=== PATIENT | male | born 2005 | race Caucasian/White ===

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

== ENCOUNTER 2023-04-22 16:09 | Emergency (ER) | payer MEDICAID, SELFPAY ==
[2023-04-22 16:15] VITALS: BP 122/66; PULSE 110; RESP 18; TEMP 37; O2SAT 100; BMI 19.9
--- NOTE | 2023-04-22 16:45 | W.ED.SKABFB ---
HPI - Skin/Abscess/Foreign Bdy General: Chief complaint: Skin/Abscess/Foreign Body Stated complaint: sore on right arm Time Seen by Provider: 04/22/23 16:34 Source: patient Mode of arrival: ambulatory Limitations: no limitations History of Present Illness: Patient is a 18-year-old male who presents to ED today with complaint of redness and swelling surrounding his right elbow. He states approximately 4 to 5 days ago he noticed a small pimple-like lesion near the elbow that he attempted to pop and drain. He states since then he has noticed worsening swelling and redness. Patient was seen at a walk-in clinic yesterday and placed on Bactrim. He has had a total of 2 doses of this medication. They also prescribed him topical mupirocin ointment. Patient states redness and swelling continues to spread and now has noticed a very small amount of purulent drainage. He maintains full painless range of motion of the elbow joint. He has no systemic symptoms such as fevers, body aches, vomiting. He does report a history of staph to a left finger over a decade ago. MD complaint: abscess/boil Onset (ago): day(s) Tetanus up to date: yes Location: RUE Severity: moderate Pain Consistency: constant Relieving factors: none Exacerbating factors: none Context: none Associated symptoms: Reports no associated symptoms; Deny chills or fever(s) Treatments prior to arrival: antibiotic Review of Systems Const: Denies: fever(s), chills, body aches, fatigue or malaise Card: Denies: chest pain Resp: Denies: dyspnea GI: Denies: abdominal pain Musc: Reports: extremity pain (R arm), extremity swelling (R arm), joint pain (R elbow) and joint swelling (R elbow); Denies: neck pain, back pain, joint redness or joint warmth Neuro: Denies: numbness in extremities, weakness in extremities, sensory changes or dizziness PFS ED PFSH: Social History Smoking and tobacco status: never smoked Second hand smoke exposure: No Substance/Drug Use: never Adopted: No Physical Exam Const: COMMON NORMALS: no acute distress, average body habitus, no limitations, healthy appearing, alert and well nourished Extremity: COMMON NORMALS: full ROM and capillary refill normal GENERAL: Yes normal exam except as noted RIGHT UPPER EXTREMITY: Yes elbow joint Right elbow: Yes ROM (full painless ROM of elbow joint) and Yes neurovascular exam (normal) OTHER: Patient has redness and swelling affecting the dorsal aspect of his right elbow. He has a scant amount of purulent central drainage. This was obtained and cultured. There is no underlying fluctuance to suggest abscess at this time. Surrounding induration and cellulitis noticed EXTREMITY IMAGE (BACK): 1. erythema/cellulitis; early abscess formation Neuro: COMMON NORMALS: moves all extremities, no focal motor deficits and no sensory deficits noted SENSORIUM/ORIENTATION: Yes alert Course Vital Signs: Vital signs: Vital Signs Temperature 98.6 F 04/22/23 16:15 Pulse Rate 110 H 04/22/23 16:15 Respiratory Rate 18 04/22/23 16:15 Blood Pressure 122/66 04/22/23 16:15 Pulse Oximetry 100 04/22/23 16:15 MDM - Skin/Abscess/Foreign Bdy Medicial Decision Making Patient here with redness and swelling along with early abscess formation overlying his right elbow. Patient has no extension into his bursa and I have no concern for septic bursitis. He has full painless range of motion of the joint therefore no clinical suspicion for septic arthritis. Abscess at this time is not amendable to I&D. I was able to express a small amount of purulent drainage for culture. Patient has had less than 24 hours of antibiotic therapy. I will increase his Bactrim to 2 tabs twice daily. He was given IM Rocephin here prior to discharge. Strict return ED precautions given. Discharge Plan Discharge Patient Disposition: Home Clinical Impression: Cellulitis of left elbow Condition: Stable Prescriptions: New Bactrim DS 800-160 mg tablet 2 tab PO BID 7 Days Qty: 28 0RF No Action dextroamphetamine-amphetamine [Adderall] 30 mg tablet 30 mg PO DAILY Zyrtec 10 mg capsule 10 mg PO DAILY PRN multivitamin [Daily Multi-Vitamin] Tablet 1 tab PO DAILY ascorbic acid (vitamin C) [Vitamin C] 500 mg tablet,chewable 500 mg PO DAILY Probiotic 3 billion cell capsule 3,000 mmu cells PO DAILY Rx Instructions: administer with a meal azithromycin 250 mg tablet See Rx Instructions PO .COMPLEX Qty: 6 0RF Rx Instructions: For 250 mg dose pack: take 500 mg today (day 1), then 250 mg for 4 days (days 2-5) PO fluticasone propionate [Flonase Allergy Relief] 50 mcg/actuation spray,suspension 2 spray intranasal DAILY Qty: 16 0RF Rx Instructions: administer into each nostril [id number] [Bromfed DM] 2-30-10 mg/5 mL syrup 5 ml PO Q6H PRN (Reason: cold symptoms) Qty: 118 0RF sulfamethoxazole-trimethoprim [Bactrim DS] 800-160 mg tablet 1 tab PO BID 10 Days Qty: 20 0RF mupirocin 2 % ointment 1 applic topical TID 10 Days Qty: 22 0RF Discharge Orders: Discharge ED (Routine); Ordered 04/22/23 Ordered By: Julissa Nicole Referrals: Tali Fry MD [Primary Care Provider] - Patient Instructions: Cellulitis, Abscess (ED) Activity Restrictions/Additional Instructions: As we discussed your early abscess formation is not amendable to incision and drainage at this time. I am doubling your Bactrim dose. You have been given an additional prescription to help you filll this full course. I would like you to take 2 tablets twice a day for 10 days. Continue to monitor redness and swelling closely as you have been doing-return for worsening. We cultured drainage today. Hospital should reach out to you if the bacteria is resistant to Bactrim and will switch your antibiotic if so. Coding Level of Care Code ED Engineering Mathematician for Madhuri Yin
[2023-04-22] MEDS: cefTRIAXone 1,000 MG in water for injection-sterile 2.1 ML 2.1 MG IM (17:01)
== END 2023-04-22 17:22 | disposition home or self-care (01) ==
PROVIDERS: Emergency Provider Physician Assistant; PCP Family Medicine
DX: L03.114 Cellulitis of left upper limb (principal)
CPT/HCPCS: 87070; 87075; 87077; 87186; 87205; 96372; 99284; J0696

== ENCOUNTER → 2023-07-15 15:27 | Outpatient (BNVA) | payer MEDICAID, SELFPAY | PROVIDERS: PCP Family Medicine; Visit Provider Nurse Practitioner Family | DX: R69 Illness, unspecified (principal); J06.9 Acute upper respiratory infection, unspecified | CPT/HCPCS: 87400 ==